=== PATIENT | female | born 1995 | race Native Hawaiian/Other Pacific Islander ===

== ENCOUNTER 2017-03-31 06:08 | Emergency (ER) | payer OTHER ==
[2017-03-31 06:10] VITALS: BP 111/76; PULSE 72; RESP 16; TEMP 98.3
[2017-03-31] MEDS ORDERED: SODIUM CHLOR 0.9% 1000 ML INJ 1,000 ML IV SCH (07:11)
[2017-03-31] MEDS ORDERED: SODIUM CHLORIDE 0.9% FLUSH 10 ML FLUSH IV FLUSH PRN (07:15)
[2017-03-31] MEDS ORDERED: LIDOCAINE VISCOUS 2% SOLN 15 ML UDC PO ONE (07:15)
[2017-03-31] MEDS ORDERED: ONDANSETRON HCL 4 MG/2 ML VIAL IVP ONE (07:15)
[2017-03-31] MEDS ORDERED: ALUMINUM/MAGNESIUM/SIMETH 30 ML CUP PO ONE (07:15)
[2017-03-31 07:35] LABS: AUTOMATED NEUTROPHIL # 3.1 TH/MM3 (1.8-7.7); BASOPHIL # 0.1 TH/MM3 (0-0.2); BASOPHIL % 1.1 % (0.0-2.0); EOSINOPHIL # 0.2 TH/MM3 (0-0.4); EOSINOPHIL % 2.2 % (0.0-4.0); HEMATOCRIT 41.2 % (35.0-46.0); HEMOGLOBIN 13.7 GM/DL (11.6-15.3); LYMPH % 48.1 % (9.0-44.0); LYMPHOCYTE # 3.8 TH/MM3 (1.0-4.8); MEAN CELL VOLUME 86.4 FL (80.0-100.0); MEAN CORPUSCULAR HEMOGLOBIN 28.7 PG (27.0-34.0); MEAN CORPUSCULAR HGB CONC 33.2 % (32.0-36.0); MEAN PLATELET VOLUME 8.3 FL (7.0-11.0); MONO % 8.8 % (0.0-8.0); MONOCYTE # 0.7 TH/MM3 (0-0.9); NEUT % 39.8 % (16.0-70.0); PLATELET COUNT 221 TH/MM3 (150-450); RED BLOOD COUNT 4.77 MIL/MM3 (4.00-5.30); RED CELL DISTRIBUTION WIDTH 13.1 % (11.6-17.2); WHITE BLOOD COUNT 7.8 TH/MM3 (4.0-11.0)
[2017-03-31 07:53] LABS: ALKALINE PHOSPHATASE 72 U/L (45-117); TOTAL BILIRUBIN ADULT 0.9 MG/DL (0.2-1.0)
[2017-03-31 08:00] LABS: ALBUMIN 4.2 GM/DL (3.4-5.0); ALT (GPT) 25 U/L (9-42); AST (GOT) 25 U/L (16-38); BICARBONATE 27.5 MEQ/L (21.0-32.0); BLOOD UREA NITROGEN 11 MG/DL (7-18); CALCIUM 8.8 MG/DL (8.5-10.1); CHLORIDE 104 MEQ/L (98-107); GLOMERULAR FILTRATION RATE 129 ML/MIN (>89); GLUCOSE,RANDOM 80 MG/DL (74-106); LIPASE 137 U/L (73-393); SODIUM (NA) 139 MEQ/L (136-145)
--- NOTE | 2017-03-31 08:45 | PD ---
HPI Chief Complaint: Dizziness Time Seen by Provider: 07:06 Travel History International Travel<30 days: Yes Contact w/Intl Traveler<30days: Yes Name of Country Traveled to: [place] Traveled to known affect area: Yes History of Present Illness HPI The patient 21 years old he complains of abdominal pain nausea for about obtaining a half. The symptoms started gradually. Timing constant. Associated symptoms include decreased appetite. No fever dysuria vaginal bleeding or discharge. Last menstruation 4 days prior. Onset gradual. The patient flew here from [facility] about 9 days prior. [facility] Past Medical History Medical History: Denies Significant Hx ?: Unknown LMP: 03/27/2017 Past Surgical History Surgical History: No Previous Surgery Social History Alcohol Use: No Tobacco Use: No Allergies-Medications (Allergen,Severity, Reaction): Coded Allergies: No Known Allergies (Unverified , 03/31/17) Reported Meds & Prescriptions Reported Meds & Active Scripts Active No Active Prescriptions or Reported Medications Review of Systems Except as stated in HPI: all other systems reviewed are Neg Physical Exam Narrative GENERAL: 21-year-old female well-nourished well-developed no acute distress SKIN: Warm and dry. HEAD: Atraumatic. Normocephalic. EYES: Pupils equal and round. No scleral icterus. No injection or drainage. ENT: No nasal bleeding or discharge. Mucous membranes pink and moist. NECK: Trachea midline. No JVD. CARDIOVASCULAR: Regular rate and rhythm. RESPIRATORY: No accessory muscle use. Clear to auscultation. Breath sounds equal bilaterally. GASTROINTESTINAL: Soft. Minimal tenderness in the right side. MUSCULOSKELETAL: Extremities without clubbing, cyanosis, or edema. No obvious deformities. NEUROLOGICAL: Awake and alert. No obvious cranial nerve deficits. Motor grossly within normal limits. Five out of 5 muscle strength in the arms and legs. Normal speech. PSYCHIATRIC: Appropriate mood and affect; insight and judgment normal. Data Data Last Documented VS Vital Signs Date Time Temp Pulse Resp B/P (MAP) Pulse Ox O2 Delivery O2 Flow Rate FiO2 03/31/17 06:10 98.3 72 16 111/76 (88) Orders Orders Influenzae A/B Antigen (03/31/17 06:49) Group A Rapid Strep Screen (03/31/17 06:49) Beta Hcg (Quant/Titer) (03/31/17 07:11) Complete Blood Count With Diff (03/31/17 07:11) Comprehensive Metabolic Panel (03/31/17 07:11) Lipase (03/31/17 07:11) Iv Access Insert/Monitor (03/31/17 07:11) Ecg Monitoring (03/31/17 07:11) Oximetry (03/31/17 07:11) Ondansetron Inj (Zofran Inj) (03/31/17 07:15) Sodium Chlor 0.9% 1000 Ml Inj (Ns 1000 M (03/31/17 07:11) Sodium Chloride 0.9% Flush (Ns Flush) (03/31/17 07:15) Al-Mag Hy-Si 40-40-4 Mg/Ml Liq (Mag-Al P (03/31/17 07:15) Lidocaine 2% Viscous (Xylocaine 2% Visco (03/31/17 07:15) Ed Urine Pregnancytest Poc (03/31/17 07:11) Oral Contrast - Adult (03/31/17 07:16) Strep Culture (Group A) (03/31/17 07:00) Ed Discharge Order (03/31/17 09:54) Labs Laboratory Tests Test 03/31/17 07:15 White Blood Count 7.8 TH/MM3 Red Blood Count 4.77 MIL/MM3 Hemoglobin 13.7 GM/DL Hematocrit 41.2 % Mean Corpuscular Volume 86.4 FL Mean Corpuscular Hemoglobin 28.7 PG Mean Corpuscular Hemoglobin Concent 33.2 % Red Cell Distribution Width 13.1 % Platelet Count 221 TH/MM3 Mean Platelet Volume 8.3 FL Neutrophils (%) (Auto) 39.8 % Lymphocytes (%) (Auto) 48.1 % Monocytes (%) (Auto) 8.8 % Eosinophils (%) (Auto) 2.2 % Basophils (%) (Auto) 1.1 % Neutrophils # (Auto) 3.1 TH/MM3 Lymphocytes # (Auto) 3.8 TH/MM3 Monocytes # (Auto) 0.7 TH/MM3 Eosinophils # (Auto) 0.2 TH/MM3 Basophils # (Auto) 0.1 TH/MM3 CBC Comment DIFF FINAL Differential Comment Blood Urea Nitrogen 11 MG/DL Creatinine 0.60 MG/DL Random Glucose 80 MG/DL Total Protein 8.0 GM/DL Albumin 4.2 GM/DL Calcium Level 8.8 MG/DL Alkaline Phosphatase 72 U/L Aspartate Amino Transf (AST/SGOT) 25 U/L Alanine Aminotransferase (ALT/SGPT) 25 U/L Total Bilirubin 0.9 MG/DL Sodium Level 139 MEQ/L Potassium Level 3.7 MEQ/L Chloride Level 104 MEQ/L Carbon Dioxide Level 27.5 MEQ/L Anion Gap 8 MEQ/L Estimat Glomerular Filtration Rate 129 ML/MIN Lipase 137 U/L Human Chorionic Gonadotropin, Quant LESS THAN 1 MIU/ML MDM Medical Decision Making Medical Screen Exam Complete: Yes Emergency Medical Condition: Yes Medical Record Reviewed: Yes Differential Diagnosis Constipation, Gastritis, Acute Cholecystitis, Biliary Colic, Pancreatitis, LIVE , Hepatitis, Bowel Obstruction, Cystitis, Mesenteric Ischemia, AAA, Appendicitis , Renal Stone/Hydronephrosis, GERD, perforated viscous Narrative Course CBC & BMP Diagram 03/31/17 07:15 Total Protein 8.0, Albumin 4.2, Calcium Level 8.8, Alkaline Phosphatase 72, Aspartate Amino Transf (AST/SGOT) 25, Alanine Aminotransferase (ALT/SGPT) 25, Total Bilirubin 0.9 Lipase normal The patient would like to leave AGAINST MEDICAL ADVICE reported that her symptoms have resolved. Risks benefits and alternatives were discussed including missed diagnosis of appendicitis complications related to her including sepsis severe sepsis ICU stay permanent disability. The patient and the significant other verbalized understanding. They understood that they could return any time for any reason. Patient was competent for independent decision making. Diagnosis Primary Impression: Left against medical advice Scripts No Active Prescriptions or Reported Meds Disposition: 07 AGAINST MEDICAL ADVICE Condition: Stable Scottie Alvarado MD Mar 31, 2017 08:45
== END 2017-03-31 11:00 | disposition left against medical advice (07) ==
LOC: NEPC 06:08
DX: R10.9 Unspecified abdominal pain (principal); Z53.21 Procedure and treatment not carried out due to patient leaving prior to being seen by health care provider
CPT/HCPCS: 80053; 83690; 84702; 85025; 87081; 87804; 87880; 96361; 96374; 99284; J2405; J7030

== ENCOUNTER 2017-04-20 20:42 | Emergency (ER) | payer OTHER ==
[2017-04-20 20:43] VITALS: BP 110/64; PULSE 94; RESP 16; TEMP 98.9; O2SAT 98
[2017-04-20 21:42] LABS: BACTERIA, URINE RARE /hpf; BILIRUBIN, URINE NEG (NEG); BLOOD, URINE NEG (NEG); GLUCOSE,URINE NEG (NEG); KETONE, URINE NEG (NEG); MUCUS URINE MANY /lpf (OCC); NITRITE,URINE NEG (NEG); SQUAMOUS EPITHELIAL CELL URINE 3 /hpf (0-5); URINE COLOR YELLOW (YELLW/STRAW); URINE LEUKOCYTE ESTERASE NEG (NEG)
--- NOTE | 2017-04-21 09:06 | PD ---
Physical Exam Date Seen by Provider: Apr 20, 2017 Time Seen by Provider: 20:17 Narrative 21 year old female presents to the emergency department for evaluation of back pain, breast pain, and vaginal discharge as well as headache that started last night. Current pain is 8/10. Data Data Last Documented VS Vital Signs Date Time Temp Pulse Resp B/P (MAP) Pulse Ox O2 Delivery O2 Flow Rate FiO2 04/20/17 20:43 98.9 94 16 110/64 (79) 98 Orders Orders Urinalysis - C+S If Indicated (04/20/17 21:09) Ed Urine Pregnancytest Poc (04/20/17 21:09) Labs Laboratory Tests Test 04/20/17 21:10 Urine Color YELLOW Urine Turbidity HAZY Urine pH 6.0 Urine Specific [place] 1.021 Urine Protein TRACE mg/dL Urine Glucose (UA) NEG mg/dL Urine Ketones NEG mg/dL Urine Occult Blood NEG Urine Nitrite NEG Urine Bilirubin NEG Urine Urobilinogen LESS THAN 2.0 MG/DL Urine Leukocyte Esterase NEG Urine RBC 1 /hpf Urine WBC 1 /hpf Urine Squamous Epithelial Cells 3 /hpf Urine Bacteria RARE /hpf Urine Mucus MANY /lpf Microscopic Urinalysis Comment CULT NOT INDICATED MDM Supervised Visit with MERI: No Narrative Course 21 year old female presents to the emergency department for evaluation of vaginal discharge, headache,, breast pain that started last night. Patient initially seen in triage. Workup is initiated. Patient left AGAINST MEDICAL ADVICE before she could be moved to medical bed. Diagnosis Primary Impression: Left against medical advice Patient Instructions: General Instructions Departure Forms: Tests/Procedures Scripts No Active Prescriptions or Reported Meds Disposition: 07 AGAINST MEDICAL ADVICE Daphne Lord Apr 21, 2017 09:06
== END 2017-04-21 06:42 | disposition left against medical advice (07) ==
LOC: NED 23:59
DX: M54.9 Dorsalgia, unspecified (principal); Z53.21 Procedure and treatment not carried out due to patient leaving prior to being seen by health care provider
CPT/HCPCS: 81001; 99283

== ENCOUNTER 2017-04-24 17:16 | Emergency (ER) | payer OTHER ==
[2017-04-24 17:19] VITALS: BP 101/69; PULSE 107; RESP 14; TEMP 98.4; O2SAT 99
--- NOTE | 2017-04-24 19:37 | PD ---
HPI Chief Complaint: Related Problem Time Seen by Provider: 19:16 Travel History International Travel<30 days: No Contact w/Intl Traveler<30days: No Traveled to known affect area: No History of Present Illness HPI patient is here with only complaint of late period of about 3 days....patient denies any n/v/d/vag discharge or vag bleeding currently. patient is otherwise doing well and is only here because urine tests have been negative repeatedly yet she is late for her period. no pcp or obgyn. [facility] Past Medical History Medical History: Denies Significant Hx Influenza Vaccination: No ?: Unknown LMP: Mar Past Surgical History Surgical History: No Previous Surgery Social History Alcohol Use: No Tobacco Use: No Substance Use: No Allergies-Medications (Allergen,Severity, Reaction): Coded Allergies: No Known Allergies (Unverified , 03/31/17) Reported Meds & Prescriptions Reported Meds & Active Scripts Active No Active Prescriptions or Reported Medications Review of Systems General / Constitutional: No: Fever Eyes: No: Visual changes HENT: No: Headaches Cardiovascular: No: Chest Pain or Discomfort Respiratory: No: Shortness of Breath Gastrointestinal: No: Abdominal Pain Genitourinary: Positive: Other (see hpi), No: Dysuria Musculoskeletal: No: Pain Skin: No Rash Neurologic: No: Weakness Psychiatric: No: Depression Endocrine: No: Polydipsia Hematologic/Lymphatic: No: Easy Bruising Physical Exam Narrative GENERAL: smiling and cooperative SKIN: Warm and dry. HEAD: Atraumatic. Normocephalic. EYES: Pupils equal and round. No scleral icterus. No injection or drainage. ENT: No nasal bleeding or discharge. Mucous membranes pink and moist. NECK: Trachea midline. No JVD. CARDIOVASCULAR: Regular rate and rhythm. RESPIRATORY: No accessory muscle use. Clear to auscultation. Breath sounds equal bilaterally. GASTROINTESTINAL: Abdomen soft, non-tender, nondistended. MUSCULOSKELETAL: Extremities without clubbing, cyanosis, or edema. No obvious deformities. NEUROLOGICAL: Awake and alert. No obvious cranial nerve deficits. Motor grossly within normal limits. Five out of 5 muscle strength in the arms and legs. Normal speech. PSYCHIATRIC: Appropriate mood and affect; insight and judgment normal. Data Data Last Documented VS Orders Orders Beta Hcg (Quant/Titer) (04/24/17 19:24) Ed Discharge Order (04/24/17 20:35) Labs Laboratory Tests Test 04/24/17 19:27 Human Chorionic Gonadotropin, Quant LESS THAN 1 MIU/ML MDM Medical Decision Making Medical Screen Exam Complete: Yes Emergency Medical Condition: Yes Medical Record Reviewed: Yes Differential Diagnosis irreg menses v Narrative Course neg serum hcg consistent with nonpregnacy. patient's first irreg menses may not be anything clinically significatnt however will give referral to OBGYN Diagnosis Primary Impression: medical clearance Referrals: Cinthya Auguste MD for additional evaluation and treatment of your irregular period Patient Instructions: General Instructions Scripts No Active Prescriptions or Reported Meds Disposition: DISCHARGE HOME Condition: Stable Shashank White MD Apr 24, 2017 19:37
== END 2017-04-24 21:00 | disposition home or self-care (01) ==
LOC: NEPD 17:16
DX: Z32.02 Encounter for pregnancy test, result negative (principal); N94.89 Other specified conditions associated with female genital organs and menstrual cycle
CPT/HCPCS: 84702; 99283